=== PATIENT | female | born 1970 | race Caucasian/White ===

== ENCOUNTER 2021-06-23 22:00 | Emergency (ER) | payer OTHER ==
[~2021-06-23] VITALS: Ht 160 cm; Wt 59.0 kg
[2021-06-24] MEDS ORDERED: CARAFATE1 GM PO (03:29)
[2021-06-24] MEDS ORDERED: IRON325 MG PO (03:29)
[2021-06-24] MEDS ORDERED: PEPCID AC20 MG PO (03:29)
== END 2021-06-24 03:45 | disposition home or self-care (01) ==
LOC: ER 22:00
DX: K29.60 Other gastritis without bleeding (principal); Z98.84 Bariatric surgery status; D50.9 Iron deficiency anemia, unspecified; Z20.822 Contact with and (suspected) exposure to COVID-19

== ENCOUNTER → 2021-12-02 | Emergency (ER) | payer OTHER ==
[~2021-12-02] VITALS: Ht 160 cm; Wt 60.3 kg
[~2021-12-02] MED LIST: CARAFATE1 GM PO; IRON325 MG PO; PEPCID AC20 MG PO
== END | disposition home or self-care (01) ==
LOC: ER 07:32
DX: B34.9 Viral infection, unspecified (principal); Z86.2 Personal history of diseases of the blood and blood-forming organs and certain disorders involving the immune mechanism; Z20.822 Contact with and (suspected) exposure to COVID-19

== ENCOUNTER 2024-01-10 01:07 | Inpatient (IN) | payer OTHER ==
[~2024-01-10] VITALS: Ht 154.9 cm; Wt 61.2 kg
--- NOTE | 2024-01-10 01:26 | NUR ---
SE RECIBE PTE ALERTA Y ORIENTADA X3 LA MISMA REFIERE [place] DESDE HACE 1 MES Y CALAMBRES PELVICOS.
[2024-01-10] MEDS ORDERED: RINGERS SOLUTION,LACTATED 1,000 ML IV STA (01:57)
--- NOTE | 2024-01-10 02:30 | NUR ---
SE ORIENTA PTE SOBRE X A SEGUIR, EL CUAL REFIERE ENTENDER. SE COLECTAN MUESTRAS Y SE CANALIZA PTE UTILIZANDO MEDIDAS ASEPTICAS. SE ADM. MEDICAMENTOS GENE ORDEN MEDICA.
[2024-01-10 02:37] LABS: MEAN CORPUSCULAR HGB CONC 28.6 g/dl (32.0-36.0); PLATELET COUNT 386 K/uL (150-450); RED BLOOD COUNT 4.31 M/uL (4.00-6.00); RED CELL DISTRIBUTION WIDTH 21.8 % (11.5-14.5)
[2024-01-10 02:38] LABS: HEMATOCRIT 22.6 % (36.0-45.00); HEMOGLOBIN 6.5 g/dL (12.0-15.00); MEAN CELL VOLUME 52.5 fL (80.00-100.00)
[2024-01-10 02:44] LABS: INR 0.99; PARTIAL THROMBOPLASTIN TIME 20.9 SECONDS (22.0-34.0); PROTHROMBIN TIME 10.4 SECONDS (9.0-11.5)
[2024-01-10 02:48] LABS: ALBUMIN 3.9 gm/dL (3.4-5.0); BILIRUBIN TOTAL 0.4 mg/dL (0.3-1.2); CREATININE SERUM 0.88 mg/dL (0.55-1.02); GFR 67.74; GLOBULINA 4.5 G/DL (2.4-3.5); POTASSIUM 3.86 mEq/L (3.5-5.1); TOTAL PROTEIN 8.4 gm/dL (6.4-8.2)
--- NOTE | 2024-01-10 04:57 | NUR ---
SE EDUCA A PACIENTE ACERCA DE PROCEDIMIENTO DE TRANSFUSION, LA MISMA REFIRE ENTENDER. SE BECKY PERMISO DE TRASNFUSION EL CUAL PACIENTE FIRMA. SE REQUISAN 2 UNIDADES PRBC'S.
[2024-01-10] MEDS ORDERED: IRON FUM,PS/FOLIC/BCOMP,C NO.9 1 CAP CAPSULE PO SCH (09:00)
[2024-01-10] MEDS ORDERED: ESTROGENS, CONJUGATED 25 MG in 0.9 % SODIUM CHLORIDE 50 ML IV SCH (09:00)
[2024-01-10] MEDS ORDERED: hydrOXYzine PAMOATE 50 MG CAPSULE PO SCH (21:00)
[2024-01-11 03:36] LABS: HEMATOCRIT 27.5 % (36.0-45.00); MEAN CORPUSCULAR HGB CONC 30.8 g/dl (32.0-36.0); PLATELET COUNT 308 K/uL (150-450); RED BLOOD COUNT 4.56 M/uL (4.00-6.00)
[2024-01-11 04:05] LABS: MEAN CORPUSCULAR HEMOGLOBIN 18.6 pg (27.00-32.0); RED CELL DISTRIBUTION WIDTH 32.8 % (11.5-14.5)
[2024-01-11 04:06] LABS: HEMOGLOBIN 8.5 g/dL (12.0-15.00); MEAN CELL VOLUME 60.3 fL (80.00-100.00)
[2024-01-11] MEDS ORDERED: SOD FERRIC GLUC COMPLX/SUCROSE 62.5 MG in 0.9 % SODIUM CHLORIDE 50 ML IV SCH (09:00)
[2024-01-12] MEDS ORDERED: MAXFE CAPLET1 EAC1 PO (08:45)
[2024-01-12] MEDS ORDERED: MEDROXYPROGESTE10 MG PO (08:45)
[2024-01-12] MEDS ORDERED: IRON FUM,PS/FOLIC/BCOMP,C NO.9 1 CAP CAPSULE PO SCH (09:00)
== END 2024-01-12 11:43 | disposition home or self-care (01) | DRG 812 ==
LOC: ER 01:08 → SEC-K 09:50 → OB/GYN 09:50
PROVIDERS: ADMIT Obstetrics & Gynecology; ATTEND Obstetrics & Gynecology
PROC: 30233N1 Transfusion of Nonautologous Red Blood Cells into Peripheral Vein, Percutaneous Approach (ICD-10-PCS; principal; 2024-01-10)
PROC: BW4GZZZ Ultrasonography of Pelvic Region (ICD-10-PCS; 2024-01-10)
DX: D64.9 Anemia, unspecified (principal); N92.1 Excessive and frequent menstruation with irregular cycle; Z20.822 Contact with and (suspected) exposure to COVID-19